=== PATIENT | female | born 1985 | race American Indian/Alaskan Native ===

== ENCOUNTER 2018-04-26 19:56 | Emergency (ER) | payer MEDICARE ==
[2018-04-26 20:15] VITALS: BP 132/86
[2018-04-26] MEDS: MOTRIN PO ONE (21:07)
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
== END 2018-04-26 23:30 | disposition home or self-care (01) ==
LOC: ED 19:56
DX: S86.912A Strain of unspecified muscle(s) and tendon(s) at lower leg level, left leg, initial encounter (principal); S20.212A Contusion of left front wall of thorax, initial encounter; S13.4XXA Sprain of ligaments of cervical spine, initial encounter; V49.49XA Driver injured in collision with other motor vehicles in traffic accident, initial encounter; Y93.89 Activity, other specified; Y92.89 Other specified places as the place of occurrence of the external cause; Y99.8 Other external cause status
CPT/HCPCS: 71046; 71110; 71250; 93005; 93010